=== PATIENT | male | born 1950 | race Caucasian/White ===

== ENCOUNTER 2019-04-27 11:16 | Inpatient (IN) | payer OTHER ==
[~2019-04-27] VITALS: Ht 157.5 cm; Wt 64.0 kg
--- NOTE | 2019-04-27 11:30 | NUR ---
Patient to ER bed 4 to gown for evaluation. Side rails up. Assumed care.
[2019-04-27 11:35] VITALS: BP_SYST 147
--- NOTE | 2019-04-27 11:40 | NUR ---
Patient advised that he had gone to seek medical advise from his primary doctor and was advised to go to ER. Patient advised that he has been N/V the prior day and felt weak. Patient was accompanied by and is not presenting any signs of distress.
--- NOTE | 2019-04-27 11:45 | NUR ---
ER Dr. Singleton at bedside examining patient.
[2019-04-27 11:52] LABS: BASOPHILS # (AUTO) 0.1 K/uL (0.0-0.2); BASOPHILS % (AUTO) 0.9 % (0.0-2.0); EOSINOPHILS # (AUTO) 0.3 K/uL (0.0-0.4); HEMATOCRIT 27.4 % (36-54); HEMOGLOBIN 9.4 g/dL (14.0-18.0); LYMPHOCYTES # (AUTO) 1.1 K/uL (1.0-5.5); LYMPHOCYTES % (AUTO) 10.6 % (20.5-51.5); MEAN CORPUSCULAR HEMOGLOBIN 34 pg (27-31); MEAN CORPUSCULAR HGB CONC 34 % (32-36); MEAN CORPUSCULAR VOLUME 98 fL (79.0-98.0); MONOCYTES # (AUTO) 0.6 K/uL (0.0-1.0); MONOCYTES % (AUTO) 5.8 % (1.7-9.3); NEUTROPHILS # (AUTO) 8.3 K/uL (1.8-7.7); NEUTROPHILS % (AUTO) 79.7 % (40.0-70.0); PLATELET COUNT (AUTO) 350 K/uL (130-430); RED BLOOD CELL COUNT(AUTO) 2.79 MIL/uL (4.2-6.2); RED CELL DISTRIBUTION WIDTH 14.2 % (9.0-15.0); WHITE BLOOD COUNT (AUTO) 10.4 K/uL (4.8-10.8)
[2019-04-27 12:03] LABS: CALCIUM 7.8 mg/dL (8.4-11.0); POTASSIUM 4.9 mmol/L (3.5-5.1)
[2019-04-27 12:10] LABS: ALBUMIN 2.9 g/dL (3.4-4.8); TOTAL BILIRUBIN 0.3 mg/dL (0.0-1.0)
--- NOTE | 2019-04-27 12:10 | NUR ---
Reported critical value to Dr. Singleton. BUN 94 and Creatinine 9.90. Per Dr. Singleton patient will be admitted.
[2019-04-27 12:13] LABS: CREATININE 9.9 mg/dL (0.55-1.30)
[2019-04-27] MEDS ORDERED: DIME50TA35 PO (12:53)
[2019-04-27] MEDS ORDERED: NOR10 PO (12:53)
[2019-04-27] MEDS ORDERED: FURO40TA5 PO (12:53)
[2019-04-27] MEDS ORDERED: SODI325T PO (12:54)
--- NOTE | 2019-04-27 13:30 | NUR ---
Patient resting quietly. No acute distress noted. Vital signs within normal range.
--- NOTE | 2019-04-27 15:00 | NUR ---
Patient will be admitted to care of Dr. Charles. Admitted to Telemetry unit. Will go to room 119A. Belongings list completed. Summary report printed. Report given at bedside to RUBÉN de la torre.
[2019-04-27 15:15] VITALS: BP_SYST 139
--- NOTE | 2019-04-27 15:15 | NUR ---
ADMISSION NOTE Received patient from ER via sweta, received report from EBONY SHORT. Patient admitted with diagnosis of RENAL FAILURE Patient oriented to hospital routine, call light, toileting and safety-patient verbalized understanding.
--- NOTE | 2019-04-27 15:40 | NUR ---
CONSULTATION PAGED REASON FOR CONSULTATION:RENAL FAILURE WAS CONSULT CALLED?Y PERSON WHO WAS NOTIFIED:BRITTNEY CONSULTING PHYSICIAN:BRYAN ALMONTE DIGITAL CONTROLS TECHNICAL OFFICER SPECIALTY:RENAL DIGITAL CONTROLS TECHNICAL OFFICER PHONE NUMBER:[phone] REQUESTING PHYSICIAN:TRACY QUILES
[2019-04-27] MEDS ORDERED: FLU VACC TS2019(65UP)/MF59C/PF 45 MCG/0.5 ML SYRINGE I.M. PRN (15:45)
--- NOTE | 2019-04-27 15:45 | NUR ---
CONTINUATION OF CARE REPORT WAS ENDORSED BY ADMISSION NURSE. PATIENT IS AWAKE AND ALERT, ADMISSION DONE WITH BLUE PHONE SENIOR FINANCIAL ABRAHAM # [id number]. PATIENT STATES THAT HE IS FEELING OUT OF IT IS NOT UNDERSTANDING FRENCH OR GAMBIAN, PATIENT IS ALERT AND ORIENTED KNOW WHERE HE IS AT AND WHY HE IS HERE. PATIENT EDUCATED LINE ASSEMBLER AIRCRAFT LIGHT FOR ASSISTANCE, CALL LIGHT IS WITH PATIENT. DR. DAVIS IS AT NURSES STATION. PATIENT HAS URINAL AT BED SIDE. PATIENT IS LAYING IN BED, EYES CLOSED NO COMPLAINTS AT THIS TIME. PATIENT SHOWS NO SIGNS OF ANY DISTRESS,BREATHING IS EQUAL AND NON LABORED. NO OTHER NEEDS AT THIS TIME.
[2019-04-27 16:00] VITALS: BP_SYST 139
[2019-04-27] MEDS ORDERED: D5W 1,000 ML IV PRN (16:08)
[2019-04-27] MEDS ORDERED: ONDANSETRON HCL 4 MG/2 ML VIAL IVP PRN (16:15)
[2019-04-27] MEDS ORDERED: ACETAMINOPHEN 325 MG TABLET PO PRN (16:15)
[2019-04-27] MEDS ORDERED: GLUCOSE 15 GM GEL (in 37.5 GM TUBE) PO PRN (16:15)
[2019-04-27] MEDS ORDERED: cloNIDine HCL 0.1 MG TABLET PO PRN (16:15)
[2019-04-27] MEDS ORDERED: DEXTROSE 50% JECT 50 ML DISP.SYRIN IVP PRN (16:15)
[2019-04-27] MEDS ORDERED: INSULIN REGULAR, HUMAN 100 UNITS/ML, 10 ML VIAL (humuLIN R) SUBCUT PRN (16:15)
[2019-04-27] MEDS: NACL 0.9% 1,000 ML IV SCH (16:49)
--- NOTE | 2019-04-27 17:18 | NUR ---
IV FLUID/ ACCU CHECK PATIENTS ACCU CHECK DONE NO COVERAGE NEED. PATIENT COMPLAINS HE IS HUNGRY PROVIDED PATIENT WITH HALF A TURKEY SANDWICH, AND ORANGE JUICE. PATIENT ABLE TO EAT AND DRINK BY SELF. PATIENT IV FLUIDS STARTED ORDERED. PATIENT HAS ALL SAFETY PRECAUTIONS IN PLACE. CALL LIGHT IS WITH PATIENT. NO OTHER NEEDS AT THIS TIME. WILL CONTINUE TO MONITOR.
--- NOTE | 2019-04-27 19:09 | NUR ---
RN CLOSING NOTE PATIENT APPEARS TO BE RESTING WITH BOTH EYES CLOSED NO SIGNS OF ANY DISTRESS, BREATHING IS EQUAL AND NON LABORED. PATIENT HAS ALL SAFETY PRECAUTIONS IN PLACE. CALL LIGHT IS WITH PATIENT. PATIENT HAS NO OTHER NEEDS OR COMPLAINTS AT THIS TIME.
[2019-04-27 21:00] VITALS: BP_SYST 137
--- NOTE | 2019-04-27 21:45 | NUR ---
Patient awake is verbally indicative , AMBULATES WITH CANE brp russian speaking History of DIABETES DM snacks po offered sips of water tolerating .
--- NOTE | 2019-04-28 | NUR ---
ASSIST PATIENT OUT OF BED AMBULATE patient has own cane from Home FALL RISK MEASURES IMPLEMENTED & EFFECTIVE .
[2019-04-28 00:26] VITALS: BP_SYST 135
--- NOTE | 2019-04-28 00:49 | NUR ---
Patient awake alert SNACKS PO given crackers & juice orange , jello po also tolerate .
--- NOTE | 2019-04-28 00:54 | NUR ---
SAFETY MEASURES FALL PRECAUTIONS implemented CANE @ THE BEDSIDE IN REACH CALL MANRIQUE WITH patient assist as needed / .
--- NOTE | 2019-04-28 04:31 | NUR ---
HOURLY ROUNDING Patient Resting is verbally Responsive skin dry warm chest movement symmetrical unlabored call walden with patient .
[2019-04-28 04:39] VITALS: BP_SYST 137
[2019-04-28] MEDS: NACL 0.9% 1,000 ML IV SCH ×2 (06:12→14:00)
[2019-04-28 06:19] LABS: ALBUMIN 2.5 g/dL (3.4-4.8); CALCIUM 7.7 mg/dL (8.4-11.0); POTASSIUM 4.6 mmol/L (3.5-5.1); TOTAL BILIRUBIN 0.3 mg/dL (0.0-1.0)
[2019-04-28 06:43] LABS: CREATININE 9.71 mg/dL (0.55-1.30)
[2019-04-28 06:48] LABS: BASOPHILS # (AUTO) 0.1 K/uL (0.0-0.2); BASOPHILS % (AUTO) 0.6 % (0.0-2.0); EOSINOPHILS # (AUTO) 0.4 K/uL (0.0-0.4); EOSINOPHILS % (AUTO) 4.1 % (0.0-4.0); HEMATOCRIT 27.4 % (36-54); HEMOGLOBIN 9.3 g/dL (14.0-18.0); LYMPHOCYTES % (AUTO) 10.1 % (20.5-51.5); MEAN CORPUSCULAR HEMOGLOBIN 33 pg (27-31); MEAN CORPUSCULAR HGB CONC 34 % (32-36); MEAN CORPUSCULAR VOLUME 98 fL (79.0-98.0); MONOCYTES # (AUTO) 0.7 K/uL (0.0-1.0); MONOCYTES % (AUTO) 6.9 % (1.7-9.3); NEUTROPHILS # (AUTO) 7.8 K/uL (1.8-7.7); NEUTROPHILS % (AUTO) 78.3 % (40.0-70.0); PLATELET COUNT (AUTO) 339 K/uL (130-430); RED BLOOD CELL COUNT(AUTO) 2.81 MIL/uL (4.2-6.2); RED CELL DISTRIBUTION WIDTH 13.6 % (9.0-15.0)
--- NOTE | 2019-04-28 06:48 | NUR ---
Phoned paged DR DAVIS CR [phone]
--- NOTE | 2019-04-28 07:28 | NUR ---
CONSULT SURGERY NOHELIA CATHETER PLACEMENT THEO CEDENO [phone] S/W PEG EXCHANGE
--- NOTE | 2019-04-28 08:00 | NUR ---
Note Pt sitting on side of bed to eat breakfast. No SOB/resp distress or pain/discomfort noted at this time. IV in left AC intact and patent at this time. Call light within reach.
[2019-04-28 08:06] LABS: HEPATITIS B SURFACE AG Negative (Negative); HEPATITIS C VIRUS AB <0.1 s/co ratio (0.0-0.9)
[2019-04-28 08:10] VITALS: BP_SYST 156
--- NOTE | 2019-04-28 08:55 | NUR ---
NOTE Dr Hernandez called back and update on pt's status given. Dr Hernandez unable to come in to see pt till 6pm tonmaria del carmen. hairspring setter - Trinh notified.
[2019-04-28] MEDS: amLODIPine BESYLATE 10 MG TABLET PO SCH (09:13)
--- NOTE | 2019-04-28 11:30 | NUR ---
Note Pt was explained possible "placement of Og Catheter or Perma cath" by manager manufacturing Tawny. Pt stated he understood placement of Og catheter or Perma cath. Pt was informed that Dr Hernandez will come in at 1800 and explain the procedure and answer questions/concerns at that time. Pt resting in bed at this time.
[2019-04-28 12:00] VITALS: BP_SYST 147
--- NOTE | 2019-04-28 15:20 | NUR ---
Note Pt's at bedside attempting to feed pt his lunch. Pt denies any needs at this time. IVF's infusing well through left AC IV site. Call light within reach.
[2019-04-28 16:18] VITALS: BP_SYST 152
--- NOTE | 2019-04-28 18:35 | NUR ---
Note Pt resting in bed with IVF"s infusing well through left AC IV site. Tele unit attached and intact all shift. No SOB/resp distress or pain/discomfort noted all shift. Pt was checked on q1' and PRN all shift for needs and care. No needs noted. Call light within reach.
--- NOTE | 2019-04-28 19:30 | NUR ---
CHANGE OF SHIFT; pt. sleeping when received but easily awakened, did not eat dinner, asked pt. why , said he might throw up. denies any pain at this time. IVF infusing. instructed to call for help, pt. khmer speaking. will assess later, blue phone at bedside.
--- NOTE | 2019-04-28 20:30 | NUR ---
NOTES: pt. been sleeping, repositioned self for comfort. IV infusing via rt. antecubital. moves all extremities. waiting for Dr. Hernandez to come for insertion of Og cath for dialysis. consent need to be sign when MD explain the procedure.
[2019-04-28 21:00] VITALS: BP_SYST 152
--- NOTE | 2019-04-28 21:30 | NUR ---
NOTES: pt. awakened, checked Blood sugar 106. asked hospital secretary to interpret, pt. denies any discomfort, no shortness of breath, no chest pain, reminded about the Og cath insertion as soon as MD comes. call light within reach. on fall risk precautions, bed alarm on.
[2019-04-28] MEDS ORDERED: HEPARIN SODIUM,PORCINE 5000 UNITS/ML VIAL IVP ONE (23:00)
--- NOTE | 2019-04-28 23:10 | NUR ---
NOTES: pt. signed consent for insertion of nakul catheter, interpreted and verbalized understanding. Dr. Hernandez here , procedure done at bedside.
[2019-04-28] MEDS ORDERED: HEPARIN SODIUM,PORCINE 5000 UNITS/ML VIAL ONE (23:23)
[2019-04-28] MEDS ORDERED: HEPARIN SODIUM, PORCINE 10,000 UNITS/ 10 ML VIAL ONE (23:27)
--- NOTE | 2019-04-28 23:30 | NUR ---
NOTES: CXR done for placement, Dr. Hernandez is not waiting,said to call for result, charge nurse Juan M aware. pt. informed about dialysis after placement confirmed.
[2019-04-29 00:15] VITALS: BP_SYST 152
--- NOTE | 2019-04-29 00:15 | NUR ---
NOTES: VS checked. pt. resting , no complaints manifested. fall risk precautions, reminded to maintain bed rest.
--- NOTE | 2019-04-29 01:50 | NUR ---
NOTES: called radiology for the result of placement of Og cath, Erica said she faxed it but it was [facility] to [facility].
--- NOTE | 2019-04-29 01:55 | NUR ---
NOTES: called Dr. Hernandez for the result of CXR and he said its ok to use anytime.
--- NOTE | 2019-04-29 02:00 | NUR ---
NOTES; called Dr. Hernadez, Dr. Wade simulation specialist asked if hemodialysis can be done early this am since it was just read that its ok to use. aware of BUN and creatinine. informed charge nurse Juan M.
--- NOTE | 2019-04-29 02:30 | NUR ---
NOTES: supervisor pullet farm called about hemodialysis this am, aware.
--- NOTE | 2019-04-29 03:10 | NUR ---
NOTES: pt. medicated with Tylenol for c/o of rt. neck pain where the nakul cath placed. instructed pt. not to stay on his right side.
--- NOTE | 2019-04-29 04:10 | NUR ---
NOTES: noted relief of pain on his rt. neck. pt. sleeping. continue to monitor. fall risk precautions.
--- NOTE | 2019-04-29 06:00 | NUR ---
NOTES: pt. dressing on rt. neck came off. instructed pt. to turn on left side instead of right ,keeps forgetting, new transparent dressing applied. consent signed for hemodialysis.
[2019-04-29] MEDS: NACL 0.9% 1,000 ML IV SCH (06:22)
--- NOTE | 2019-04-29 06:45 | NUR ---
CLOSING NOTES; pt. sleeping, IVF infusing via left arm. Og cath via rt. jugular intact. still waiting for hemodialysis this am, will follow up with day shift. pt. does not want to remove his short pants. for further care and assistance. call light at bedside.
[2019-04-29 08:00] VITALS: BP_SYST 150
--- NOTE | 2019-04-29 08:00 | NUR ---
Note Pt resting in bed, refuses to eat any of his breakfast at this time. No SOB/resp distress or pain/discomfort noted at this time. IV in left AC intact and patent infusing IVF's well. No needs noted at this time. Og catheter in right jugular intact and dressing CDI at this time. Call light within reach.
[2019-04-29] MEDS: amLODIPine BESYLATE 10 MG TABLET PO SCH (08:43)
--- NOTE | 2019-04-29 10:03 | NUR ---
Nutrition Update Ventura Scale 15 noted. Pt admitted for renal failure. Diet: [facility] BMI: 25.6 kg/m2 RD to follow per nutrition care standards.
--- NOTE | 2019-04-29 10:32 | NUR ---
DC PLANNING Received call from Marika, Dialysis nurse, that spoke w Dr Conley & pt going to need to have outpt HD set up. Faxed facesheet requested ATTN: Misti, fax [phone]. Addendum: 04/29/19 at 1404 by Macie Banegas DP DCP received order patient will have hemodialysis at; [facility] [phone] Chair time 2:15pm-6:15pm [facility]
--- NOTE | 2019-04-29 11:00 | NUR ---
Note end finder twisting department at bedside evaluating pt and to start dialysis at bedside at this time. Labs and order for dialysis, 2 bags of NS given to wire steward at this time as requested.
[2019-04-29 12:00] VITALS: BP_SYST 139
--- NOTE | 2019-04-29 12:10 | NUR ---
Note Dr Charles was on the floor and order for discharge home after hemodialysis was completed, given at this time. assistant service manager Glenis spoke to Dr Hernadez of pt discharge home after hemodialysis. Dr Hernadez okayed pt's discharge home after dialysis is completed. No needs noted at this time. Call light within reach.
[2019-04-29] MEDS ORDERED: HEPARIN SODIUM,PORCINE 5000 UNITS/ML VIAL MC ONE (13:00)
--- NOTE | 2019-04-29 14:19 | NUR ---
Dietitian Recommendations * [facility]/ Glucerna TID (ONS provides 660 kcal/day, 30 gm protein/day) * Renal therapeutic dietary restriction is not warranted at this time d/t currently suboptimal PO intakes LP, RD Please refer to Nutrition Assessment for details. Addendum: 04/29/19 at [address] Amended: Links added.
[2019-04-29 16:00] VITALS: BP_SYST 144
[2019-04-29 16:24] VITALS: BP_SYST 144
[2019-04-29] MEDS ORDERED: FLU VACC TS2019(65UP)/MF59C/PF 45 MCG/0.5 ML SYRINGE I.M. PRN (16:30)
--- NOTE | 2019-04-29 17:00 | NUR ---
NOTE Pt's tele unit was dc'd and returned to electronic bench technician. Pt's left IV was dc'd and site benign. No swelling/redness/odor or drainage noted at this time. Pt dressed in street clothes by family. Pt and family checked side table and drawers for belongings. All belongings were packed. Discharge instructions given in wolof to pt and family by Kinyarwanda speaking RN and questions/concerns were answered at this time. Pt's right jugular Og catheter was dressed and dressing CDI at this time. Pt denies any SOB/resp distress or pain/discomfort at this time. Pt stable.
--- NOTE | 2019-04-29 17:05 | NUR ---
Note Pt off the floor with all his belongings and discharge paperwork to private car via wheelchair at this time.
[2019-04-30 03:06] LABS: HEPATITIS A AB, IgM Negative (Negative); HEPATITIS B CORE AB, IgM Negative (Negative); HEPATITIS B SURFACE AG Negative (Negative)
== END 2019-04-29 17:05 | disposition home or self-care (01) | DRG 683 ==
LOC: SED 11:16 → STU 14:21
PROVIDERS: ADMIT Internal Medicine Hospice and Palliative Medicine; ATTEND Internal Medicine Hospice and Palliative Medicine
PROC: 02HV33Z Insertion of Infusion Device into Superior Vena Cava, Percutaneous Approach (ICD-10-PCS; principal; 2019-04-28)
PROC: B548ZZA Ultrasonography of Superior Vena Cava, Guidance (ICD-10-PCS; 2019-04-28)
PROC: 5A1D70Z Performance of Urinary Filtration, Intermittent, Less than 6 Hours Per Day (ICD-10-PCS; 2019-04-29)
DX: N17.9 Acute kidney failure, unspecified (principal); I12.0 Hypertensive chronic kidney disease with stage 5 chronic kidney disease or end stage renal disease; J91.8 Pleural effusion in other conditions classified elsewhere; N18.6 End stage renal disease; E11.22 Type 2 diabetes mellitus with diabetic chronic kidney disease; Z79.899 Other long term (current) drug therapy
CPT/HCPCS: 36415; 71045; 76700-TC; 80053; 80074; 82550-TC; 82962; 83880; 84484; 85025; 86706; 86803; 87081; 87340; 90935; 93005; 99285; G0378; J1644; J1815; J2405; J7030